=== PATIENT | female | born 1970 | race Asian ===

== ENCOUNTER 2018-01-04 06:25 | Inpatient (IN) | payer BC ==
[2018-01-04] MEDS ORDERED: Propofol 200 MG/20 ML SDV ONE ×4 (06:50→09:27)
[2018-01-04] MEDS ORDERED: Midazolam 1 MG/ML 2 ML SDV ONE ×3 (06:50→08:11)
[2018-01-04] MEDS ORDERED: fentaNYL 100 MCG/2 ML SDV ONE (06:50)
[2018-01-04] MEDS: Lactated Ringers 1,000 ML IV SCH ×2 (06:53→17:35)
[2018-01-04] MEDS ORDERED: ceFAZolin 2 GM in Premix Bag 1 BAG IV ONE (06:58)
[2018-01-04] MEDS ORDERED: ceFAZolin/Dextrose,Iso-Osmotic 2 GM/50 ML Duplex Bag IV ONE (07:12)
--- NOTE | 2018-01-04 07:27 | PCM.PREANE ---
Preanesthetic Assessment - Anesthesia/Transfusion/Family Hx Anesthesia History: No Prior Anesthesia (has had labor epidural) Family History of Anesthesia Reaction: No Transfusion History: No Prior Transfusion(s) - Review of Systems General: No Symptoms Pulmonary: No Symptoms Cardiovascular: No Symptoms Gastrointestinal: No Symptoms Neurological: No Symptoms Other: Reports: None - Physical Assessment NPO Status Date: 01/03/18 Height: 1.6 m Weight: 97.522 kg ASA Class: 2 Mental Status: Alert & Oriented x3 Airway Class: Mallampati = 1 Dentition: Reports: Normal Dentition ROM/Head Extension: Full Lungs: Clear to Auscultation, Normal Respiratory Effort Cardiovascular: Regular Rate, Regular Rhythm - Allergies Allergies/Adverse Reactions: Allergies Allergy/AdvReac Type Severity Reaction Status Date / Time No Known Allergies Allergy Verified 12/30/17 07:51 - Anesthesia Plan Pre-Op Medication Ordered: None - Acknowledgements Anesthesia Type Planned: Spinal Pt an Appropriate Candidate for the Planned Anesthesia: Yes Alternatives and Risks of Anesthesia Discussed w Pt/Guardian: Yes Pt/Guardian Understands and Agrees with Anesthesia Plan: Yes PreAnesthesia Questionnaire Respiratory History: Reports: TB Other Respiratory History: TB over 10 yrs ago Gastrointestinal History: Reports: GERD, Other (See Below) Other Gastrointestinal History: states has gallstone Musculoskeletal History: Reports: Arthritis Endocrine/Metabolic History: Reports: Diabetes, Type II, Obesity/BMI 30+ Hematologic History: Reports: Anemia Dermatologic History: Reports: None - Past Surgical History Head Surgeries/Procedures: Reports: None Dermatological Surgical History: Reports: Skin Biopsy - SUBSTANCE USE Smoking Status *Q: Never Smoker Recreational Drug Use History: No - HOME MEDS Home Medications: Home Meds Multivitamin with Minerals [Multiple Vitamin] 1 tab PO DAILY 04/07/15 [History] Iron Polysaccharide Complex [Poly-Iron] 1 tab PO BID 12/30/17 [History] metFORMIN HCl [Metformin HCl] 500 mg PO BID 12/30/17 [History] - CURRENT (IN HOUSE) MEDS Current Meds: Current Medications Lactated Ringer's (Ringers, Lactated) 1,000 mls @ 125 mls/hr IV ASDIRECTED ELIZABETH Last Admin: 01/04/18 06:53 Dose: 125 mls/hr Cefazolin Sodium/Dextrose 2 gm (/ Premix) 50 mls @ 100 mls/hr IV ONETIME ONE Stop: 01/04/18 07:27 Discontinued Medications Cefazolin Sodium/Dextrose (Ancef) Confirm Administered Dose 2 gm IV .STK-MED ONE Stop: 01/04/18 07:13 Fentanyl (Sublimaze) Confirm Administered Dose 100 mcg .ROUTE .STK-MED ONE Stop: 01/04/18 06:51 Midazolam HCl (Versed 1 Mg/Ml) Confirm Administered Dose 2 mg .ROUTE .STK-MED ONE Stop: 01/04/18 06:51 Propofol (Diprivan 20 Ml) Confirm Administered Dose 200 mg .ROUTE .STK-MED ONE Stop: 01/04/18 06:51 Tranexamic Acid (Cyklokapron) 2,000 mg IV ONETIME ONE Stop: 01/04/18 07:01 Tranexamic Acid (Cyklokapron) Confirm Administered Dose 2,000 mg .ROUTE .STK- MED ONE Stop: 01/04/18 07:12
[2018-01-04] MEDS ORDERED: Dermabond Prineo 1 Tube TOP ONE (07:33)
[2018-01-04] MEDS ORDERED: Phenylephrine 1% 10 MG/ML SDV ONE (08:39)
[2018-01-04] MEDS ORDERED: fentaNYL 100 MCG/2 ML SDV IVPUSH PRN (09:12)
--- NOTE | 2018-01-04 09:48 | PCM.OPNOTE ---
- General Post-Op/Procedure Note Date of Surgery/Procedure: 01/04/18 Operative Procedure(s): right anterior total hip arthroplasty Findings: severe OA and deformity Pre Op Diagnosis: severe right hip osteoarthritis Post-Op Diagnosis: same Anesthesia Technique: Moderate Sedation, Spinal Primary Surgeon: Jerry Lutz Mai Wide Area Network Systems Administrator: Ana Maria Leo Reason Wide Area Network Systems Administrator Was Necessary: retraction, reduction, closing Pathology: femoral head EBL in mLs: 300 Complications: none Condition: Good
[2018-01-04] MEDS ORDERED: Bisacodyl 10 MG Supp RECTAL PRN (09:54)
[2018-01-04] MEDS ORDERED: diphenhydrAMINE 25 MG Cap PO PRN (09:54)
[2018-01-04] MEDS ORDERED: Morphine 4 MG/ML Syringe IVPUSH PRN (09:54)
[2018-01-04] MEDS ORDERED: Aluminum Hydroxide/Magnesium Hydroxide/Simethicone Susp 30 ML Cup PO PRN (09:54)
[2018-01-04] MEDS ORDERED: Ketorolac 30 MG/ML SDV IVPUSH PRN (09:54)
--- NOTE | 2018-01-04 10:33 | PCM.POSTAN ---
POST ANESTHESIA ASSESSMENT - MENTAL STATUS Mental Status: Alert, Oriented - RESPIRATORY Respiratory Status: Respiratory Rate WNL, Airway Patent, O2 Saturation Stable - CARDIOVASCULAR CV Status: Pulse Rate WNL, Blood Pressure Stable - GASTROINTESTINAL GI Status: No Symptoms - POST OP HYDRATION Hydration Status: Adequate & Stable
[2018-01-04] MEDS: Insulin Aspart 100 Units/ML 3 ML Pen SUBCUT SCH ×2 (12:15→16:51)
--- NOTE | 2018-01-04 12:18 | PCM.CONS ---
H&P History of Present Illness - General Date of Service: 01/04/18 Admit Problem/Dx: Admission Diagnosis/Problem Admission Diagnosis/Problem Hip replacement planned Source of Information: Patient History Limitations: Reports: No Limitations - History of Present Illness Initial Comments - Free Text/Narative: This 47 year old female with newly diagnosed type 2 DM and anemia presented today to R anterior hip replacement with Dr Chan. Hospitalist service consulted for DM management. Kristen reports she has been feeling well prior to surgery. She reports no pain currently, no chest pain or palpitations. Significant other at bedside. She reports she was recently diagnosed with DM type 2 and started Metformin 500 mg 2 weeks ago. She has been changing her diet and has lost about 5 lbs since diagnosis. She seems very motivated to change her lifestyle. PCP, DENAE Beltrán Right Incisional Pain Score (Numeric/FACES): 0 - Related Data Allergies/Adverse Reactions: Allergies Allergy/AdvReac Type Severity Reaction Status Date / Time No Known Allergies Allergy Verified 12/30/17 07:51 Home Medications: Home Meds Multivitamin with Minerals [Multiple Vitamin] 1 tab PO DAILY 04/07/15 [History] Iron Polysaccharide Complex [Poly-Iron] 1 tab PO BID 12/30/17 [History] metFORMIN HCl [Metformin HCl] 500 mg PO BID 12/30/17 [History] Past Medical History Cardiovascular History: Reports: None. Denies: Afib, Blood Clots/VTE/DVT, Cardiomyopathy, Hypertension, [place] Respiratory History: Reports: TB Other Respiratory History: TB over 10 yrs ago Gastrointestinal History: Reports: Cholelithiasis, GERD Musculoskeletal History: Reports: Arthritis Neurological History: Reports: None. Denies: CVA, TIA Psychiatric History: Reports: None Endocrine/Metabolic History: Reports: Diabetes, Type II, Obesity/BMI 30+ Hematologic History: Reports: Anemia Dermatologic History: Reports: None - Infectious Disease History Infectious Disease History: Reports: TB (10 years ago) - Past Surgical History Respiratory Surgical History: Reports: None GI Surgical History: Reports: None Dermatological Surgical History: Reports: Skin Biopsy Social & Family History - Tobacco Use Smoking Status *Q: Never Smoker - Alcohol Use Alcohol Use History: No - Recreational Drug Use Recreational Drug Use: No - Living Situation & Occupation 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 Denies: Fever, Chills, Malaise, Weakness HEENT: Reports: No Symptoms. Denies: Headaches, Sinus Congestion, Vertigo Pulmonary: Reports: No Symptoms. Denies: Shortness of Breath, Cough, Sputum Cardiovascular: Reports: No Symptoms. Denies: Chest Pain, Palpitations, Edema Gastrointestinal: Reports: No Symptoms. Denies: Abdominal Pain, Black Stool, Bloody Stool, Nausea, Vomiting Genitourinary: Reports: No Symptoms. Denies: Dysuria, Frequency, Burning, Pain Musculoskeletal: Reports: No Symptoms. Denies: Neck Pain Skin: Reports: No Symptoms Psychiatric: Reports: No Symptoms Neurological: Reports: No Symptoms Hematologic/Lymphatic: Reports: Anemia Immunologic: Reports: No Symptoms Exam - Exam Exam: See Below - Vital Signs Vital Signs: Last Vital Signs Temp 97.4 F 01/04/18 11:00 Pulse 88 01/04/18 11:30 Resp 18 01/04/18 11:30 BP 111/66 01/04/18 11:30 Pulse Ox 98 01/04/18 11:30 Weight: 97.522 kg - Exam Quality Assessment: DVT Prophylaxis. No: Supplemental Oxygen General: Alert, Oriented, Cooperative HEENT: Conjunctiva Clear, Mucosa Moist & [place], Posterior Pharynx Clear Neck: Supple, Trachea Midline, 2 Lungs: Clear to Auscultation, Normal Respiratory Effort Cardiovascular: Regular Rate, Regular Rhythm GI/Abdominal Exam: Normal Bowel Sounds, Soft, Non-Tender, No Organomegaly, No Distention, No Abnormal Bruit, No Mass, Pelvis Stable Extremities: Normal Inspection, Normal Range of Motion, Non-Tender, No Pedal Edema, Normal Capillary Refill Skin: Warm, Dry, Incision (R hip, C/D/I) Neurological: Cranial Nerves Intact Neuro Extensive - Mental Status: Alert, Oriented x3 Neuro Extensive - Motor, Sensory, Reflexes: CN II-XII Intact Psychiatric: Alert, Normal Affect, Normal Mood - Patient Data Lab Results Last 24 hrs: Laboratory Results - last 24 hr 01/04/18 01/04/18 01/04/18 Range/Units 06:38 07:20 07:33 POC Glucose 118 H (60-110) mg/dL Urine HCG, Qual NEGATIVE (NEGATIVE) Blood Type B POSITIVE Antibody Screen NEGATIVE Consult PN Assessment/Plan Procedures: Procedures RONEN DNA DIR PROBE (05/18/17) COMPLETE CBC AUTOMATED (12/15/17) COMPREHEN METABOLIC PANEL (07/26/17) CULTURE OTHR SPECIMN AEROBIC (04/07/15) DRAINAGE OF SKIN ABSCESS (04/07/15) EMERGENCY DEPT VISIT (04/07/15) AVILES VAG DNA DIR PROBE (05/18/17) GLYCOSYLATED HEMOGLOBIN TEST (12/15/17) LIPID PANEL (07/26/17) METABOLIC PANEL TOTAL CA (12/15/17) PROTHROMBIN TIME (12/15/17) ROUTINE VENIPUNCTURE (12/15/17) TISSUE EXAM BY PATHOLOGIST (10/25/17) TRICHOMONAS VAGIN DIR PROBE (05/18/17) URINALYSIS AUTO W/SCOPE (12/15/17) URINE CULTURE/COLONY COUNT (12/15/17) X-RAY EXAM HIP UNI 2-3 VIEWS (04/13/17) (1) S/P total hip arthroplasty SNOMED Code(s): 210228772515, 837210390119 Code(s): Z96.649 - PRESENCE OF UNSPECIFIED ARTIFICIAL HIP JOINT Current Visit: Yes Qualifiers: Laterality: right Qualified Code(s): Z96.641 - Presence of right artificial hip joint (2) DM type 2 (diabetes mellitus, type 2) SNOMED Code(s): 03208797 Code(s): E11.9 - TYPE 2 DIABETES MELLITUS WITHOUT COMPLICATIONS Current Visit: Yes Qualifiers: Diabetes mellitus assisted insulin use: without computer terminal operator use Diabetes mellitus complication status: without complication Qualified Code(s): E11.9 - Type 2 diabetes mellitus without complications (3) Hx of iron deficiency anemia SNOMED Code(s): 253391138 Code(s): Z86.2 - PRSNL HISTORY OF DIS OF THE BLD/BLD-FORM ORG/IMMUN [facility] [place] [place] Current Visit: Yes (4) Obesity (BMI 30-39.9) SNOMED Code(s): 279119656, 298288770 Code(s): E66.9 - OBESITY, UNSPECIFIED Current Visit: Yes Problem List Initiated/Reviewed/Updated: Yes My Orders Last 24 Hours: My Active Orders 01/04/18 11:30 Insulin Aspart [NovoLOG] See Protocol SUBCUT TIDAC 01/04/18 11:46 BMP [BASIC METABOLIC PANEL,BMP] [CHEM] Routine CBC WITH AUTO DIFF [HEME] Routine Plan: This 47 year old female admitted for R anterior ROSANGELA, hospitalist service consulted for medical management of DM type 2 1. S/P R anterior ROSANGELA: Orders per Orthopedics 2. DM type 2: Was just recently diagnosed and started on Metformin. Will hold Metformin during hospitalization and recommend restarting upon discharge. Will monitor BS TIDAC and Novolog SSI as needed. VTE prophylaxis: Would recommend when deemed appropriate by Orthopedics.
[2018-01-04 12:24] LABS: CHLORIDE,CL 108 mmol/L (98-107); SODIUM,NA 143 mmol/L (136-145)
--- NOTE | 2018-01-04 13:31 | OR ---
SURGEON: Jerry Chan MD DATE OF PROCEDURE: 01/04/2018 LICENSED THERAPIST: Ana Maria Leo PA-C. PREOPERATIVE DIAGNOSIS: Right hip severe osteoarthritis. POSTOPERATIVE DIAGNOSIS: Right hip severe osteoarthritis. OPERATIONS PERFORMED: Right anterior total hip arthroplasty. ANESTHESIA: Spinal with sedation. COMPLICATION: None. ESTIMATED BLOOD LOSS: 10 mL. SPECIMENS: Femoral head. IMPLANTS: Dimas Continuum trabecular metal shell with cluster holes, 56 mm outer diameter; Vivacit-E neutral liner 36 mm inner diameter; One 6.5 x 30 mm length bone screw; M/L taper press-fit stem, size 9 extended offset, reduced neck length; Biolox delta ceramic femoral head 36 mm diameter -3.5 neck length. KALLIE Leo was instrumental in the case with reduction, retraction, hemostasis control, and closing. INDICATIONS: The patient is a 47-year-old female with severe deformity arthritis to her right hip. She has failed conservative measures to modification therapy injections chronic pain on a daily basis hindering all activities. She has essentially no motion to her hips. She wished to undergo total hip arthroplasty. She understands the risks, benefits, complications of procedure including but not limited to infection, neurovascular injury, continued pain, DVT, PE, stroke, [place], , leg-length discrepancy, fracture, dislocation, deep infection, and she wished to proceed. DESCRIPTION OF PROCEDURE: The patient was seen in the preoperative area. Operative site was marked. The patient was transferred to the operating room, where spinal anesthetic was given and the Ruiz was placed. She was given moderate sedation. The legs were placed in the leg bars on the Beyer table with a narrow perineal post right hip was prepped and draped fashion alcohol followed by ChloraPrep with Ioban covering. She received preop antibiotics Ancef and 2 g of TXA. Formal time-out was taken, identifying the correct patient, procedure, and extremity. A 10 cm incision starting just lateral to the ASIS going obliquely down the femur was made. Dissection was carried down to subcutaneous tissues. Hemostasis was obtained. The fascia overlying the TFL was opened lateral to the lateral femoral cutaneous nerve. The interval between the TFL and sartorius and deep between the abductors and rectus was opened. The vastus lateralis fascia was opened, and the anterior vessels were coagulated. The indirect head of the rectus was released, and the deep Guillaume retractor was placed. The capsule was held and tagged with two FiberWires, and deep retractors were placed. Due to severe deformity, the neck was cut just below the head and the head was removed. It had severe deformity and collapse. Anterior and posterior retractors were placed. There was no labrum left inferior capsule was released. Preserving the iliopsoas tendon. The pulvinar was removed. The bed was planed to make sure the pelvis was level and sequential reaming from size 47 up to 55 mm was made. This had excellent fit and fill, with stem going slightly superior medial had good fit and fill. There were large osteophytes on the rim which were similarly rongeured off. The wound was then irrigated and a Continuum [place] metal shell with cluster holes were placed in 10 degrees of anteversion and 40 degrees of abduction. We had excellent press-fit. Once straight superior bone screw was placed after drilling and then the wound was dried out and the neutral liner was impacted. Attention was then paid to the femur. The leg was externally rotated, abducted, and extended after placing the femoral lift. The superior capsule obturator internus relief preserving the piriformis in the central canal finder was utilized to sequentially broach from size 4 up to size 9 due to calcar planing in the middle of this due to higher neck cut but in order to preserve and not cut into the greater trochanter. This was followed the [place] version or slightly retroverted in it. This was trialed and reduced with a reduced neck length, standard offset and 0 head. This printed overlay technique on the opposite side showed the offset to be equal but the leg to be slightly long. Therefore, the hip was then dislocated. The trial components were removed. The final size 9 M/L taper extended offset, reduced neck length, was impacted following the [place] version. A -3.5 head was then impacted, ceramic head, and the hip was reduced. Printed overlay technique showed equal leg lengths and offset. The wound was then thoroughly irrigated. Tag sutures were tied together. Fascia was closed with #1 Vicryl subcutaneous tissues with 2-0 Stratafix. Skin was closed with running 4-0 Monocryl. Dermabond tape and Aquacel dressing were placed. The patient was transferred to recovery room in stable condition. Sponge and needle counts were correct at the end of the case. There were no complications. The patient will take aspirin for DVT prophylaxis with weightbearing as tolerated. CALEB MALONE /[id number]
[2018-01-04] MEDS: Acetaminophen/HYDROcodone 325-5 MG Tab PO PRN ×3 (13:44→22:11)
[2018-01-04] MEDS: ceFAZolin 2 GM in Premix Bag 1 BAG IV SCH ×2 (15:35→23:11)
--- NOTE | 2018-01-04 15:47 | CR ---
EXAMINATION: Right hip HISTORY: Arthroplasty COMPARISON: 04/13/2017 TECHNIQUE: 3 views FINDINGS/IMPRESSION: Operative control films demonstrate Right total hip hardware is demonstrated in good position and alignment.
--- NOTE | 2018-01-04 16:25 | PCM48HPAN ---
Post Anesthesia Note - EVALUATION WITHIN 48HRS OF ANESTHETIC Vital Signs in Normal Range: Yes Patient Participated in Evaluation: Yes Respiratory Function Stable: Yes Airway Patent: Yes Cardiovascular Function Stable: Yes Hydration Status Stable: Yes Pain Control Satisfactory: Yes Nausea and Vomiting Control Satisfactory: Yes Mental Status Recovered: Yes Resp Rate: 19
[2018-01-04] MEDS ORDERED: metFORMIN 500 MG Tab PO SCH (21:00)
[2018-01-04] MEDS: Docusate Sodium 100 MG Cap PO SCH (21:27)
[2018-01-04] MEDS: Iron Polysaccharides Complex 150 MG Cap PO SCH (21:27)
[2018-01-04] MEDS: Ondansetron 4 MG/2 ML SDV IV PRN (22:06)
[2018-01-05] MEDS: Lactated Ringers 1,000 ML IV SCH (02:18)
[2018-01-05] MEDS: Acetaminophen/HYDROcodone 325-5 MG Tab PO PRN ×2 (05:43→11:37)
[2018-01-05 06:26] LABS: CHLORIDE,CL 107 mmol/L (98-107); SODIUM,NA 141 mmol/L (136-145)
[2018-01-05] MEDS: Insulin Aspart 100 Units/ML 3 ML Pen SUBCUT SCH ×3 (06:33→17:19)
--- NOTE | 2018-01-05 07:17 | PCM.SN ---
- Free Text/Narrative Note: S: pain in thigh, none at hip. has stood and transferred, not walked. some dizziness yesterday. pain controlled with meds. tolerating PO O: afebrile, vital signs stable dressing is clean/dry/intact with no drainage or erythema. no selling in thigh or distally. normal sensation/motor/pulses distally. hgb 10.1 a/p: pod#1 right ROSANGELA - full weight bearing with walker - hgb is good - aspirin/CSDs for DVT prophylaxis - d/c carrillo and IV fluids - likely home later
[2018-01-05] MEDS ORDERED: Sodium Chloride 0.9% 2.5 ML Syringe FLUSH PRN (07:18)
[2018-01-05] MEDS ORDERED: Sodium Chloride 0.9% 10 ML Syringe FLUSH PRN (07:18)
[2018-01-05] MEDS: Docusate Sodium 100 MG Cap PO SCH (08:05)
[2018-01-05] MEDS: Iron Polysaccharides Complex 150 MG Cap PO SCH (08:05)
[2018-01-05] MEDS ORDERED: Multivitamins with Iron/Calcium/Folic Acid/Minerals Tab PO SCH (09:00)
[2018-01-05] MEDS ORDERED: Aspirin 325 MG Tab.EC PO SCH (09:00)
[2018-01-05 11:54] VITALS: BP 124/71
[2018-01-05] MEDS: Ondansetron 4 MG/2 ML SDV IV PRN (12:40)
--- NOTE | 2018-01-05 15:34 | PCM.DCSUM1 ---
Discharge Summary - Hospital Course Brief History: pateint was admitted for elective right ROSANGELA - Discharge Data Discharge Date: 01/05/18 Discharge Disposition: Home, Self-Care 01 Condition: Good - Patient Summary/Data Operative Procedure(s) Performed: right anterior total hip arthroplasty Consults: Consultations 01/04/18 09:53 PT Evaluation and Treatment [CONS] Routine 01/04/18 09:56 Consult to Physician [CONS] Routine Hospital Course: admitted after ROSANGELA, no issues - Patient Instructions Diet: Usual Diet as Tolerated Activity: Apply Ice, As Tolerated, Full Weight Bearing Driving: Do Not Drive Showering/Bathing: May Shower Wound/Incision Care: Keep Operative Site/Wound Site Clean and Dry, Do NOT Change Dressing Notify Provider of: Fever, Swelling and Redness, Drainage - Discharge Plan Home Medications: Home Meds Multivitamin with Minerals [Multiple Vitamin] 1 tab PO DAILY 04/07/15 [History] Iron Polysaccharide Complex [Poly-Iron] 1 tab PO BID 12/30/17 [History] metFORMIN HCl [Metformin HCl] 500 mg PO BID 12/30/17 [History] Patient Handouts: Acetaminophen; Hydrocodone tablets or capsules, Aspirin, ASA oral tablets, Total Hip Replacement, Care After, [id number], Docusate capsules Referrals: Ana Maria Leo PA [Physician Healthcare Interpreter] - 01/14/18 9:30 am - Discharge Summary/Plan Comment DC Time >30 min.: No - Patient Data Vitals - Most Recent: Last Vital Signs Temp 37.5 C 01/05/18 12:40 Pulse 98 01/05/18 11:52 Resp 18 01/05/18 11:52 BP 124/71 01/05/18 11:52 Pulse Ox 96 01/05/18 11:52 Weight - Most Recent: 97.522 kg I&O - Last 24 hours: Intake & Output 01/05/18 01/05/18 01/05/18 06:59 14:59 22:59 Intake Total 1875 700 Output Total 420 Balance 1455 700 Lab Results - Last 24 hrs: Laboratory Results - last 24 hr 01/04/18 01/04/18 01/05/18 Range/Units 11:27 16:32 05:33 WBC (4.0-11.0) K/uL RBC (4.30-5.90) M/uL Hgb (12.0-16.0) g/dL Hct (36.0-46.0) % MCV (80.0-98.0) fL MCH (27.0-32.0) pg MCHC (31.0-37.0) g/dL RDW Std Deviation (28.0-62.0) fl RDW Coeff of Gemini (11.0-15.0) % Plt Count (150-400) K/uL MPV (7.40-12.00) fL Neut % (Auto) (48.0-80.0) % Lymph % (Auto) (16.0-40.0) % [place] % (Auto) (0.0-15.0) % Eos % (Auto) (0.0-7.0) % Baso % (Auto) (0.0-1.5) % Neut # (Auto) (1.4-5.7) K/uL Lymph # (Auto) (0.6-2.4) K/uL [place] # (Auto) (0.0-0.8) K/uL Eos # (Auto) (0.0-0.7) K/uL Baso # (Auto) (0.0-0.1) K/uL Nucleated RBC % /100WBC Nucleated RBCs # K/uL Sodium (136-145) mmol/L Potassium (3.5-5.1) mmol/L Chloride (98-107) mmol/L Carbon Dioxide (21.0-32.0) mmol/L BUN (7.0-18.0) mg/dL Creatinine (0.6-1.0) mg/dL Est Cr Clr Drug Dosing mL/min Estimated GFR (MDRD) ml/min Glucose (74-106) mg/dL POC Glucose 99 141 H 119 H (60-110) mg/dL Calcium (8.5-10.1) mg/dL 01/05/18 01/05/18 Range/Units 05:50 05:50 WBC 8.31 (4.0-11.0) K/uL RBC 4.29 L (4.30-5.90) M/uL Hgb 10.1 L (12.0-16.0) g/dL Hct 31.4 L (36.0-46.0) % MCV 73.2 L (80.0-98.0) fL MCH 23.5 L (27.0-32.0) pg MCHC 32.2 (31.0-37.0) g/dL RDW Std Deviation 39.0 (28.0-62.0) fl RDW Coeff of Gemini 15 (11.0-15.0) % Plt Count 226 (150-400) K/uL MPV 10.00 (7.40-12.00) fL Neut % (Auto) 70.1 (48.0-80.0) % Lymph % (Auto) 19.5 (16.0-40.0) % [place] % (Auto) 10.0 (0.0-15.0) % Eos % (Auto) 0.2 (0.0-7.0) % Baso % (Auto) 0.2 (0.0-1.5) % Neut # (Auto) 5.8 H (1.4-5.7) K/uL Lymph # (Auto) 1.6 (0.6-2.4) K/uL [place] # (Auto) 0.8 (0.0-0.8) K/uL Eos # (Auto) 0.0 (0.0-0.7) K/uL Baso # (Auto) 0.0 (0.0-0.1) K/uL Nucleated RBC % 0.0 /100WBC Nucleated RBCs # 0 K/uL Sodium 141 (136-145) mmol/L Potassium 3.5 (3.5-5.1) mmol/L Chloride 107 (98-107) mmol/L Carbon Dioxide 25.8 (21.0-32.0) mmol/L BUN 8 (7.0-18.0) mg/dL Creatinine 0.6 (0.6-1.0) mg/dL Est Cr Clr Drug Dosing 94.85 mL/min Estimated GFR (MDRD) > 60.0 ml/min Glucose 133 H (74-106) mg/dL POC Glucose (60-110) mg/dL Calcium 8.1 L (8.5-10.1) mg/dL Med Orders - Current: Current Medications Hydrocodone Bitart/Acetaminophen ([place] 325-5 Mg) 1 - 2 tab PO Q4H PRN PRN Reason: Pain Last Admin: 01/05/18 11:37 Dose: 2 tab Al Hydroxide/Mg Hydroxide (Mag-Al Plus) 30 ml PO Q4H PRN PRN Reason: indigestion Aspirin (Ecotrin) 325 mg PO BID [facility] Last Admin: 01/05/18 08:05 Dose: 325 mg Bisacodyl (Dulcolax) 10 mg RECTAL DAILY PRN PRN Reason: Constipation Diphenhydramine HCl (Benadryl) 25 - 50 mg PO Q6H PRN PRN Reason: Itching Docusate Sodium (Colace) 100 mg PO BID [facility] Last Admin: 01/05/18 08:05 Dose: 100 mg Lactated Ringer's (Ringers, Lactated) 1,000 mls @ 125 mls/hr IV ASDIRECTED [facility] Last Admin: 01/05/18 02:18 Dose: 125 mls/hr Insulin Aspart (Novolog) 0 unit SUBCUT TIDAC [facility]; Protocol Last Admin: 01/05/18 11:32 Dose: Not Given Morphine Sulfate (Morphine) 1 - 3 mg IVPUSH Q3H PRN PRN Reason: Pain Multivitamins/Minerals (Thera M Plus) 1 tab PO DAILY [facility] Last Admin: 01/05/18 08:05 Dose: 1 tab Ondansetron HCl (Zofran) 4 mg IV Q6HR PRN PRN Reason: NAUSEA/VOMITING Last Admin: 01/05/18 12:40 Dose: 4 mg Polysaccharide Iron Complex (Ferrex 150) 150 mg PO BID [facility] Last Admin: 01/05/18 08:05 Dose: 150 mg Sodium Chloride (Saline Flush) 10 ml FLUSH ASDIRECTED PRN PRN Reason: Keep Vein Open Sodium Chloride (Saline Flush) 2.5 ml FLUSH ASDIRECTED PRN PRN Reason: Keep Vein Open Discontinued Medications Cefazolin Sodium/Dextrose (Ancef) Confirm Administered Dose 2 gm IV .STK-MED ONE Stop: 01/04/18 07:13 Fentanyl (Sublimaze) Confirm Administered Dose 100 mcg .ROUTE .STK-MED ONE Stop: 01/04/18 06:51 Fentanyl (Sublimaze) 50 mcg IVPUSH Q5M PRN PRN Reason: Pain (moderate 4-6) Stop: 01/04/18 12:00 Cefazolin Sodium/Dextrose 2 gm (/ Premix) 50 mls @ 100 mls/hr IV ONETIME ONE Stop: 01/04/18 07:27 Last Admin: 01/04/18 11:53 Dose: Not Given Cefazolin Sodium/Dextrose 2 gm (/ Premix) 50 mls @ 100 mls/hr IV Q8H [facility] Stop: 01/05/18 00:29 Last Infusion: 01/04/18 23:45 Dose: Infused Ketorolac Tromethamine (Toradol) 30 mg IVPUSH Q6H PRN PRN Reason: Pain Stop: 01/05/18 05:00 Metformin HCl (Glucophage) 500 mg PO BID [facility] Midazolam HCl (Versed 1 Mg/Ml) Confirm Administered Dose 2 mg .ROUTE .STK-MED ONE Stop: 01/04/18 06:51 Midazolam HCl (Versed 1 Mg/Ml) Confirm Administered Dose 2 mg .ROUTE .STK-MED ONE Stop: 01/04/18 07:25 Midazolam HCl (Versed 1 Mg/Ml) Confirm Administered Dose 2 mg .ROUTE .STK-MED ONE Stop: 01/04/18 08:12 Octyl Cyanoacrylate (Dermabond Prineo) 1 applic TOP .STK-MED ONE Stop: 01/04/18 07:34 Phenylephrine HCl (Bryan-Synephrine) Confirm Administered Dose 10 mg .ROUTE .STK- MED ONE Stop: 01/04/18 08:40 Propofol (Diprivan 20 Ml) Confirm Administered Dose 200 mg .ROUTE .STK-MED ONE Stop: 01/04/18 06:51 Propofol (Diprivan 20 Ml) Confirm Administered Dose 200 mg .ROUTE .STK-MED ONE Stop: 01/04/18 07:44 Propofol (Diprivan 20 Ml) Confirm Administered Dose 200 mg .ROUTE .STK-MED ONE Stop: 01/04/18 08:48 Propofol (Diprivan 20 Ml) Confirm Administered Dose 400 mg .ROUTE .STK-MED ONE Stop: 01/04/18 09:28 Tranexamic Acid (Cyklokapron) 2,000 mg IV ONETIME ONE Stop: 01/04/18 07:01 Last Admin: 01/04/18 11:53 Dose: Not Given Tranexamic Acid (Cyklokapron) Confirm Administered Dose 2,000 mg .ROUTE .STK- MED ONE Stop: 01/04/18 07:12
== END 2018-01-05 12:40 | disposition home or self-care (01) | DRG 301 ==
LOC: MW.MS 06:25
PROVIDERS: ADMIT Orthopaedic Surgery; ATTEND Orthopaedic Surgery
PROC: 0SR903Z Replacement of Right Hip Joint with Ceramic Synthetic Substitute, Open Approach (ICD-10-PCS; principal; 2018-01-04)
DX: M16.11 Unilateral primary osteoarthritis, right hip (principal); M25.751 Osteophyte, right hip; E11.9 Type 2 diabetes mellitus without complications; D50.9 Iron deficiency anemia, unspecified; K21.9 Gastro-esophageal reflux disease without esophagitis; E66.9 Obesity, unspecified; Z68.32 Body mass index [BMI] 32.0-32.9, adult; Z79.899 Other long term (current) drug therapy; Z86.11 Personal history of tuberculosis
CPT/HCPCS: 36415; 76000; 76000-26; 80048; 81025; 82962; 85025; 86850; 86900; 86901; 97110-GP; 97116-GP; 97161-GP; A9270-GY; C1713; C1776; J0690; J2250; J2370; J2405; J2704; J3010; J7120

== ENCOUNTER 2020-03-15 11:06 | Day surgery (SDC) | payer BC ==
[~2020-03-15 11:06] MED LIST: Lactated Ringers 1,000 ML IV SCH
--- NOTE | 2020-03-15 13:49 | PCM.PREANE ---
Preanesthetic Assessment - Anesthesia/Transfusion/Family Hx Anesthesia History: Prior Anesthesia Without Reaction Family History of Anesthesia Reaction: No Transfusion History: No Prior Transfusion(s) Other Type of Transfusion Reaction: currently getting iron transfusions - Review of Systems General: No Symptoms Pulmonary: No Symptoms Cardiovascular: No Symptoms Gastrointestinal: No Symptoms, Other (screening) Neurological: No Symptoms Other: Reports: None - Physical Assessment NPO Status Date: 03/15/20 NPO Status Time: 08:30 Vital Signs: Last Vital Signs Temp 36.8 C 03/15/20 11:15 Pulse 104 H 03/15/20 11:15 Resp 16 03/15/20 11:15 BP 128/95 H 03/15/20 11:15 Pulse Ox 97 03/15/20 11:15 Height: 5 ft 3 in Weight: 91.626 kg ASA Class: 2 Mental Status: Alert & Oriented x3 Airway Class: Mallampati = 2 Dentition: Reports: Normal Dentition Thyro-Mental Finger Breadths: 3 Mouth Opening Finger Breadths: 3 ROM/Head Extension: Full Lungs: Clear to Auscultation, Normal Respiratory Effort Cardiovascular: Regular Rate, Regular Rhythm - Lab Values: Laboratory Last Values Urine HCG, Qual NEGATIVE (NEGATIVE) 03/15/20 11:25 - Allergies Allergies/Adverse Reactions: Allergies Allergy/AdvReac Type Severity Reaction Status Date / Time No Known Allergies Allergy Verified 12/30/17 07:51 - Blood Blood Available: No - Anesthesia Plan Pre-Op Medication Ordered: None - Acknowledgements Anesthesia Type Planned: MAC Pt an Appropriate Candidate for the Planned Anesthesia: Yes Alternatives and Risks of Anesthesia Discussed w Pt/Guardian: Yes Pt/Guardian Understands and Agrees with Anesthesia Plan: Yes PreAnesthesia Questionnaire HEENT History: Reports: Other (See Below) Other HEENT History: wears glasses Cardiovascular History: Reports: Hypertension Respiratory History: Reports: TB Other Respiratory History: was treated for TB over 10 yrs ago in the [facility] Gastrointestinal History: Reports: GERD, Other (See Below) (fatty liver) Genitourinary History: Reports: None Musculoskeletal History: Reports: Arthritis Neurological History: Reports: None Psychiatric History: Reports: None Endocrine/Metabolic History: Reports: Diabetes, Type II, Obesity/BMI 30+ (BMI 35.8) Hematologic History: Reports: Iron Deficiency Other Hematologic History: currently getting iron infusions Immunologic History: Reports: None Oncologic (Cancer) History: Reports: None Dermatologic History: Reports: None - Infectious Disease History Infectious Disease History: Reports: TB - Past Surgical History Head Surgeries/Procedures: Reports: None HEENT Surgical History: Reports: None Cardiovascular Surgical History: Reports: None Respiratory Surgical History: Reports: None GI Surgical History: Reports: None Female Surgical History: Reports: None Endocrine Surgical History: Reports: None Neurological Surgical History: Reports: None Musculoskeletal Surgical History: Reports: Hip Replacement Other Musculoskeletal Surgeries/Procedures:: hx rt hip replacement 01/05 Oncologic Surgical History: Reports: None Dermatological Surgical History: Reports: Skin Biopsy - SUBSTANCE USE Smoking Status *Q: Never Smoker - HOME MEDS Home Medications: Home Meds metFORMIN HCl [Metformin HCl] 500 mg PO BID 12/30/17 [History] Ascorbic Acid [Vitamin C] 1 tab.chew CHEW DAILY 03/13/20 [History] Iron Infusions 1 infusion IV ASDIRECTED 03/13/20 [History] Losartan Potassium 50 mg PO DAILY 03/13/20 [History] - CURRENT (IN HOUSE) MEDS Current Meds: Current Medications Lactated Ringer's (Ringers, Lactated) 1,000 mls @ 125 mls/hr IV ASDIRECTED [facility] Last Admin: 03/15/20 11:50 Dose: 125 mls/hr Documented by:
[2020-03-15] MEDS ORDERED: Propofol 200 MG/20 ML SDV ONE ×2 (14:02→14:40)
[2020-03-15] MEDS ORDERED: Lidocaine 2% 5 ML SDV ONE (14:02)
[2020-03-15] MEDS ORDERED: Midazolam 1 MG/ML 2 ML SDV ONE (14:27)
--- NOTE | 2020-03-15 15:17 | PCM.POSTAN ---
POST ANESTHESIA ASSESSMENT - VITAL SIGNS Vital Signs: Last Vital Signs Temp 36.8 C 03/15/20 11:15 Pulse 103 H 03/15/20 15:14 Resp 16 03/15/20 15:14 BP 91/57 L 03/15/20 15:14 Pulse Ox 96 03/15/20 15:14 - RESPIRATORY Respiratory Status: Respiratory Rate WNL - CARDIOVASCULAR CV Status: Pulse Rate WNL - GASTROINTESTINAL GI Status: No Symptoms - POST OP HYDRATION Hydration Status: Adequate & Stable
--- NOTE | 2020-03-15 15:18 | PCM.OPNOTE ---
- General Post-Op/Procedure Note Date of Surgery/Procedure: 03/15/20 Operative Procedure(s): egd w bx. colonoscopy Findings: see [id number] Pre Op Diagnosis: anemia and gerd Post-Op Diagnosis: Same Anesthesia Technique: Moderate Sedation Primary Surgeon: Vazquez Valentin Pathology: egd bx Complications: None Condition: Good
[2020-03-15 15:25] VITALS: BP 100/64; PULSE 96
--- NOTE | 2020-03-15 15:48 | PCM48HPAN ---
Post Anesthesia Note - EVALUATION WITHIN 48HRS OF ANESTHETIC Vital Signs in Normal Range: Yes Patient Participated in Evaluation: Yes Respiratory Function Stable: Yes Airway Patent: Yes Cardiovascular Function Stable: Yes Hydration Status Stable: Yes Pain Control Satisfactory: Yes Nausea and Vomiting Control Satisfactory: Yes Mental Status Recovered: Yes Vital Signs: Last Vital Signs Temp 36.4 C 03/15/20 15:20 Pulse 96 03/15/20 15:20 Resp 14 03/15/20 15:20 BP 100/64 03/15/20 15:20 Pulse Ox 99 03/15/20 15:20
--- NOTE | 2020-03-15 17:48 | OR ---
SURGEON: Vazquez Valentin MD DATE OF PROCEDURE: 03/15/2020 PREOPERATIVE DIAGNOSIS: Anemic. POSTOPERATIVE DIAGNOSES: Esophagogastroduodenoscopy diagnosis is gastroesophageal reflux disease and colonoscopy diagnosis is internal hemorrhoid. PROCEDURES PERFORMED: Esophagogastroduodenoscopy with biopsy and colonoscopy. DESCRIPTION OF PROCEDURE: EGD: The patient was taken to the endoscopy room, and with the RUG SETTER VELVET, Diprivan was administered. A well-lubricated EGD scope was gently inserted through the oropharynx, down the esophagus, passing through the gastroesophageal junction, into the stomach. The mucosa was examined upon the passage. Any etiology will be noted. Once in the stomach, we continued to advance to the distal antrum, passed through the pylorus into the second portion of the duodenum. Again, the mucosa was examined for any abnormality and etiology. The scope was then retrieved back to the stomach and then retroflexed to look at the fundus of the stomach. If a biopsy was indicated, we will biopsy the antrum, body, and gastroesophageal junction. The air will be sucked out while the scope is retrieved to reduce the patient's discomfort. The patient tolerated the procedure well. There were no intraoperative complications. Dr. Valentin was present through the whole procedure. Prior to surgery, a time-out had been called, the patient identified, procedure identified and antibiotic administered. The patient was taken to the endoscopy room. A time out was called, patient identified, and procedure identified. Diprivan was then administrated. Patient went from awake to sleep, hearing doctor talking or door closing is normal. Perineum inspection and digital examination were then performed. A well- lubricated colonoscope was gently inserted through the rectum, advanced past the rectosigmoid junction, the descending colon, splenic flexure, transverse colon, hepatic flexure, ascending colon, arrived to the cecum. Cecum was identified as dictated in the finding. Then the scope was carefully withdrawn while attention was paid to the mucosal surface for any abnormality. Air will be sucked out during the scope withdrawal. At the rectum, retroflexed to examine any rectal diseases, fistula or hemorrhoids. Patient tolerated procedure well. There were no intraoperative complications, and Dr. Valentin was present throughout the whole procedure. FINDINGS: EGD findings: 1. The patient is easily sedated with RUG SETTER VELVET and Diprivan, the patient is soundly snoring. 2. Oropharynx and proximal esophagus are free of disease. GE junction at 40 shows very mild salmon-colored change, suggests mild acid reflux. Stomach rugae are normal in appearance. Antrum looks fine. Duodenum looks grossly normal. Retroflexed look at the fundus of the stomach, the patient has a very mild small hiatal hernia. Biopsy done at antrum, body, GE junction at 40 and sucked out the gas while scope pulling out. During the whole study, there is no food, bile, blood, or ulcer observed. Colonoscopy findings: 1. The patient is easily sedated with RUG SETTER VELVET and Diprivan, the patient is soundly snoring. 2. Bowel prep is left to be desirable. Large amount of liquid stool compromised the study, but it was easily dispersed with irrigation. Cecum is indicated by ileocecal fold, one-to-one indentation, appendiceal orifice. Light emittance is not observed. Mucosa examined upon scope pulling out and ScopeGuide is pointing south. The patient does not have diverticulosis, polyp, mass, inflammation, stricture, ulceration, AV malformation, bleeding, none of those. Stool is yellow. The patient has mild internal hemorrhoid and no external hemorrhoid. The patient would benefit from repeat colonoscopy in 10 years from today or if clinically indicated otherwise. DEBBIE / KIRA /[id number]
== END 2020-03-15 15:45 | disposition home or self-care (01) ==
LOC: MW.SDS 11:06
PROVIDERS: ATTEND Surgery
DX: K64.8 Other hemorrhoids (principal); K29.50 Unspecified chronic gastritis without bleeding; D50.9 Iron deficiency anemia, unspecified; K21.0 Gastro-esophageal reflux disease with esophagitis; I10 Essential (primary) hypertension; E11.9 Type 2 diabetes mellitus without complications; F41.8 Other specified anxiety disorders; E66.9 Obesity, unspecified; Z68.35 Body mass index [BMI] 35.0-35.9, adult; Z79.84 Long term (current) use of oral hypoglycemic drugs; Z79.899 Other long term (current) drug therapy
CPT/HCPCS: 43239; 45378; 81025; 82962; J2001; J2250; J2704; J7120; 88305; 88312

== ENCOUNTER 2022-08-23 16:43 | Emergency (ER) | payer BC ==
[2022-08-23] MEDS ORDERED: Lidocaine 2% Viscous Solution 100 ML Bottle PO ONE (17:15)
[2022-08-23] MEDS: Lidocaine 2% Viscous Solution 15 ML UD PO ONE ×2 (17:25→18:57)
[2022-08-23 17:57] LABS: POTASSIUM,K 2.9 mmol/L (3.5-5.1)
[2022-08-23] MEDS ORDERED: Potassium Chloride 20 MEQ Tab.ER PO ONE (18:14)
[2022-08-23 18:51] VITALS: BP 155/82; PULSE 90
== END 2022-08-23 18:49 | disposition home or self-care (01) ==
LOC: MW.ED 16:43
DX: R04.0 Epistaxis (principal); E87.6 Hypokalemia; I10 Essential (primary) hypertension; M19.90 Unspecified osteoarthritis, unspecified site; E11.9 Type 2 diabetes mellitus without complications; E66.9 Obesity, unspecified; Z68.31 Body mass index [BMI] 31.0-31.9, adult; Z79.84 Long term (current) use of oral hypoglycemic drugs; Z79.899 Other long term (current) drug therapy
CPT/HCPCS: 36415; 80053; 85025; 85610; 99283; A9270

== ENCOUNTER 2024-05-10 14:33 | Emergency (ER) | payer BC ==
[2024-05-10] MEDS: Acetaminophen 325 MG Tab PO ONE (15:46)
[2024-05-10 17:22] VITALS: BP 158/92; PULSE 96
== END 2024-05-10 17:21 | disposition home or self-care (01) ==
LOC: MW.ED 14:33
DX: S46.912A Strain of unspecified muscle, fascia and tendon at shoulder and upper arm level, left arm, initial encounter (principal); M54.50 Low back pain, unspecified; I10 Essential (primary) hypertension; E11.9 Type 2 diabetes mellitus without complications; E66.9 Obesity, unspecified; Z79.84 Long term (current) use of oral hypoglycemic drugs; Z79.899 Other long term (current) drug therapy; Z75.8 Other problems related to medical facilities and other health care; Z68.38 Body mass index [BMI] 38.0-38.9, adult; W01.0XXA Fall on same level from slipping, tripping and stumbling without subsequent striking against object, initial encounter
CPT/HCPCS: 72100; 72170; 72220; 73030; 99283; A9270